=== PATIENT | female | born 1945 | race Caucasian/White ===

== ENCOUNTER → 2022-05-18 11:07 | Outpatient (CLI) | payer OTHER, SELFPAY ==
--- NOTE | ~2022-05-18 | US_ITS ---
EXAMINATION: US transvaginal DATE: 05/18/2022 11:39 INDICATION: History of atypical hyperplasia of the endometrium TECHNIQUE: Multiple endovaginal sonographic images of the pelvis were obtained. COMPARISON: None. FINDINGS: The uterus measures 5.6 x 2.1 x 3.9 cm. The endometrial complex measures 5 mm. The ovaries are not visualized however no adnexal abnormality is seen. There is no free fluid in the pelvis. IMPRESSION: 1. Unremarkable pelvic ultrasound. Reviewed, dictated and finalized at location A.
== END ==
PROVIDERS: Visit Provider Nurse Practitioner
DX: N85.01 Benign endometrial hyperplasia (principal); R93.5 Abnormal findings on diagnostic imaging of other abdominal regions, including retroperitoneum
CPT/HCPCS: 76830

== ENCOUNTER → 2022-05-18 11:12 | Outpatient (CLI) | payer OTHER, SELFPAY ==
--- NOTE | ~2022-05-18 | DEXA_ITS ---
Bone Density Report Name: KENDAL JO Age: 76 Sex: Female Ethnicity: White Date of : 1945 Indication: postmenopausal; screening for osteoporosis; height loss; Referring Provider: Oralia, Hetal Study: Bone densitometry was performed. Exam Date: May 18, 2022 Accession number: [id number] Bone Density: Region BMD T-score Z-score Classification AP Spine (L1-L4) 0.884 -1.5 0.9 Osteopenia Femoral Neck (Left) 0.695 -1.4 0.7 Osteopenia Total Hip (Left) 0.805 -1.1 0.7 Osteopenia Femoral Neck (Right) 0.617 -2.1 0.0 Osteopenia Total Hip (Right) 0.737 -1.7 0.1 Osteopenia Total Hip Mean 0.771 -1.4 0.4 Osteopenia World Health Organization criteria for BMD impression classify patients as: Normal (T-score at or above -1.0), Osteopenia (T-score between -1.0 and -2.5), or Osteoporosis (T-score at or below -2.5). 10-year Fracture Risk(1): Major Osteoporotic Fracture 12% Hip Fracture 3.2% Reported Risk Factors: [place] (), Neck BMD=0.617, BMI=20.9 (1) FRAX(R) Version 3.08. Fracture probability calculated for an untreated patient. Fracture probability may be lower if the patient has received treatment. Clinical Information Provided by Patient: Has used the following medications: Vitamin D, Calcium Patient maximum height was 64 Menopause Age: 54 Onset of menses at age 16 Number of children 0 Impression: The patient has low bone mass, based on the Right Femoral Neck T-score. The patient has an estimated ten-year risk of hip fracture of 3.2% and an estimated ten-year risk of major fracture of 12%, based on the WHO FRAX algorithm. Discussion: BONE DENSITY IS LOW AT ONE OR MORE SKELETAL SITES. THE PATIENT'S BMD AND CLINICAL RISK FACTORS CONTRIBUTE TO THIS PATIENT'S INCREASED RISK OF FRACTURE. This patient's lowest T-score is low at one or more skeletal sites. It meets the World Health Organization's (WHO) criteria for ?low bone mass? (T-score between -1.0 and -2.5). The patient's 10-year risk of hip fracture as calculated by FRAX exceeds the threshold where pharmacological therapy is recommended by the National Osteoporosis Foundation (NOF). However, all treatment decisions require clinical judgment and consideration of individual patient factors, including patient preferences, comorbidities, previous drug use, risk factors not captured in the FRAX model (e.g., frailty, falls, vitamin D deficiency, increased bone turnover, interval significant decline in bone density) and possible under or overestimation of fracture risk by FRAX. The patient should follow a healthful lifestyle (good nutrition with adequate calcium and vitamin D, and appropriate weight-bearing exercise). Follow-Up: Consider a repeat BMD and Vertebral Fracture Assessment (VFA) exam in 2 years or sooner if medically
== END ==
PROVIDERS: Visit Provider Nurse Practitioner
DX: M85.88 Other specified disorders of bone density and structure, other site (principal); M85.852 Other specified disorders of bone density and structure, left thigh; M85.851 Other specified disorders of bone density and structure, right thigh
CPT/HCPCS: 77080

== ENCOUNTER 2022-06-22 00:35 | Day surgery (SDC) | payer MEDICARE, SELFPAY ==
[2022-06-11 15:20] VITALS: BMI 20.9
--- NOTE | 2022-06-11 15:32 | PC.NURSE ---
Report to the Outpatient Waiting Room, entrance under the green pavilion located off [facility], at time __0930 on date __06/22/22 . Planned Procedure Time: __1130 . Time changes happen often and if your time is changed the preop area will call you the afternoon before. - You and your visitor will be asked to self-screen and do not enter if you have any COVID symptoms. - We encourage only one visitor and NO visitors under age 16 are allowed at this time. Your visitor will receive communication by the phone number that is given day of service. - The patient visitor is requested to social distance or may leave the building when not with patient due to restrictions. - A mask is required within the hospital. Patients may have clear liquids (water, carbonated beverages, clear teas, apple juice) until 3 hours prior to surgery (0830 AM) with a maximum of 20 ounces. - No food from midnight until time of surgery - Infants may have breast milk until 4 hours before surgery, infant formula 6 hours prior to surgery. - Children will be allowed to drink immediately following surgery. If applicable, please bring a bottle or sippy cup to assist with drinking. Juice, water, soda, and popsicles are readily available. For infants on formula, please bring formula the day of surgery. Pacifiers are allowed. Take the following medications with a SIP of water the morning of surgery: _LEVOTHYROXINE_ Medications to discontinue per physician N/A Date to take last dose Please no make-up, nail occitan, hairspray, perfume, deodorant, or body powder the day of surgery. No jewelry (including any body piercings) or valuables the day of surgery, leave them at home. Please take a shower or bath the night before, or the morning of, surgery with an antibacterial soap. Wear comfortable, loose fitting clothing. Children are encouraged to wear pajamas. - Jewelry must be removed prior to entering the operating room. Rings and piercings that are not removed may be cut off. - The hospital will not accept responsibility for valuables. - Please leave all valuables, including medications, at home the day of surgery. If you are going home after surgery, a licensed motor vehicle escort driver must drive you home. - NO public transportation without another adult. - We recommend that an adult stay with you for 24 hours following discharge. - We also recommend that you do not drive, make important decision, drink alcoholic beverages, or take any drugs that were not prescribed by your health care provider for at least 24 hours after your discharge time. For Pediatric surgeries, we recommend two adults accompany the child home. Follow any additional instructions given to you from your surgeon. If you or anyone in your household have experienced Covid symptoms in the past week, please notify your surgeon or the nurse liaison at the phone number below for possible testing. Telephone instructions given to ____PT and asked if any additional questions and then verbalized understanding. Patient advised to call surgeon office or pre surgery nurse liaison [phone] if any additional questions.
--- NOTE | 2022-06-22 07:33 | WPDHPUPDATE1 ---
History and Physical Update Update Date/Time: 06/22/22 07:33 History and Physical has been reviewed, including an updated exam of the patient. There are NO changes in the patient's condition. Risks, benefits, and alternatives have been discussed and questions answered. Patient agrees to proceed with procedure.
--- NOTE | 2022-06-22 07:33 | PM.HPGS ---
History of Present Illness History of Present Illness Consent: Risks, benefits, and alternatives have been discussed and questions answered. Patient agrees to proceed with procedure. Chief complaint: thickened endometrial lining Narrative: Shireen Ku is a 77 year old female with thickened endometrium at 5mm. Patient has a distant history in 2003 endometrial hyperplasia. Patient denies vaginal bleeding. Patient has a history of tamoxifen until 2015. Dr. Ho in 2019 refer the patient for AD and C secondary to thickened lining however the vfx artist she thought that time stated it was not thickened and no D&C was needed. Patient presented as a new patient May 05 for a 2nd opinion. Pelvic ultrasound was repeated with the stated findings and therefore the patient presents for Hysteroscopy and D&C. Risks of infection, bleeding, and perforation were reviewed. Possible pathology was also discussed. Patient voices understanding and agrees to proceed. Review of Systems Review of Systems: not repeated day of surgery; patient states no changes in status [facility] Past Medical History Medical History (Updated 06/22/22 @ 07:38 by Natali Lloyd MD) Ductal carcinoma in situ of breast 2009 Elevated cholesterol GERD (gastroesophageal reflux disease) Hypothyroid Surgical History Surgical History (Updated 06/22/22 @ 07:37 by Natali Lloyd MD) History of D&C patient states she has had 6 prior D & C's in her lifetime and in 2003 had atypical hyperplasia Social History Social History Smoking status: Never smoker Second hand tobacco smoke exposure: No Alcohol intake: current Alcohol use details: STATES MAYBE 4/YEAR Substance use: never Living arrangements: with family Spiritual care concerns: No Meds Home Medications and Allergies Home Medications Medication Instructions Recorded Confirmed Type atorvastatin 10 mg tablet 10 mg QAM 06/11/22 06/11/22 History famotidine 40 mg tablet 40 mg 06/11/22 06/11/22 History levothyroxine 50 mcg tablet 50 mcg QAM 06/11/22 06/11/22 History pantoprazole 40 mg tablet,delayed 40 mg PO DAILY 06/11/22 06/11/22 History release Allergies Allergy/AdvReac Type Severity Reaction Status Date / Time No Known Allergies Allergy Verified 06/11/22 15:17 Exam Const: General: healthy appearing and alert Orientation/consciousness: patient oriented x3 Resp: Effort & Inspection: normal respiratory effort GI: GI Palp: Yes Soft to palpation, No Tenderness to palpation present (GI) and No Palpable mass present : External Female Exam: normal external appearance Speculum Exam - Vagina: normal appearance of the vagina and normal vaginal discharge Speculum Exam - Cervix: normal appearance of the cervix Bimanual exam- vagina & uterus: uterine size normal and consistency normal Bimanual Exam- Adnexa, other: normal adnexae and No adnexal tenderness Neuro: General: patient oriented x3 Assessment and Plan Assessment and plan (1) Thickened endometrium: Code(s): R93.89 - Abnormal findings on diagnostic imaging of other specified body structures Status: Acute Assessment and Plan: plan is to proceed with D&C hysteroscopy
[2022-06-22] MEDS: LACTATED RINGERS 1,000 ML 30 ML IV CONT (07:45)
--- NOTE | 2022-06-22 07:49 | P.PNAN_ITS ---
Anes - Initial Pre Proc Eval Procedure: Operation Date: 06/22/22 09:30 Proposed Procedures p Hysteroscopy, Dilation and Curettage - Natali Lloyd MD Date/Time: 06/22/22 07:49 Surgeon: Natali Lloyd MD Pre Op Diagnosis: thickened endometrial lining Patient Data Age: 77 Gender: F Height: 1.6 m Weight: 53.63 kg Allergies Allergy/AdvReac Type Severity Reaction Status Date / Time No Known Allergies Allergy Verified 06/22/22 08:00 Home Medications Medication Instructions Recorded Confirmed Type atorvastatin 10 mg tablet 10 mg QAM 06/11/22 06/22/22 History famotidine 40 mg tablet 40 mg HS 06/11/22 06/22/22 History levothyroxine 50 mcg tablet 50 mcg QAM 06/11/22 06/22/22 History pantoprazole 40 mg tablet,delayed 40 mg PO DAILY 06/11/22 06/22/22 History release Patient hx anesthesia problems: none Family hx anesthesia problems: none Results Review: All pre-operative results and documents have been reviewed as part of the pre- operative evaluation. [facility] Past Medical History Medical History (Updated 06/22/22 @ 07:38 by Natali Lloyd MD) Ductal carcinoma in situ of breast 2009 Elevated cholesterol GERD (gastroesophageal reflux disease) Hypothyroid Surgical History Surgical History (Updated 06/22/22 @ 07:37 by Natali Lloyd MD) History of D&C patient states she has had 6 prior D & C's in her lifetime and in 2003 had atypical hyperplasia Social History Social History Smoking status: Never smoker Second hand tobacco smoke exposure: No Alcohol intake: current Alcohol use details: STATES MAYBE 4/YEAR Substance use: never Living arrangements: with family Spiritual care concerns: No Anes - Eval Final PreProcedure Day of Procedure 06/22/22 07:49 Patient weight: normal Heart: regular rate and rhythm Lungs: clear to auscultation and normal air movement Airway: Mallampati scale class II Neurological: alert and oriented Last oral intake: >/= 8 hours ASA classification: II Emergent: no Anesthetic plan: proceed Anesthesia type and monitoring: general GIVS and standard monitoring Results Review: All pre-operative results and documents have been reviewed as part of the pre- operative evaluation. Informed Consent: The patient's anesthetic plan and its attendant risks and benefits were discussed with the patient/family/POA. Questions were solicited and answers provided to the satisfaction of the patient/family/POA.
[2022-06-22] MEDS: ACETAMINOPHEN 500 MG TABLET 1000 MG PO (07:51)
[2022-06-22 08:00] VITALS: BP 114/74; PULSE 79; RESP 16; TEMP 36.8; O2SAT 96
[2022-06-22] MEDS: LIDOCAINE HCL 1% PF 30 ML VIAL 10 ML INFILTRATE (09:31)
--- NOTE | 2022-06-22 09:44 | P.OP_ITS ---
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 The uterus is bicornuate in shape. There is a polyp in the right horn. Endometrium appears severely atrophic. Description of Procedure The patient is taken to the operating room and placed under anesthesia in the dorsal lithotomy position. She was prepped and draped in the usual sterile fashion. [place] speculum was placed in the vagina and the cervix grasped on the anterior lip with a tenaculum. The cervix is injected in each quadrant with 1% lidocaine. The uterus was attempted to be sounded but there was cervical giovanny nosis noted. The os Finders are used and the cervix able to be opened. The uterus is then sounded to 6.5cm. The cervix is serially dilated to a 5 [place]. The hysteroscope is placed with the above-stated findings. The small resecting blade was placed through the scope and the polyp removed from the right horn. The hysteroscope was removed and small curette used to curette the endometrium with minimal if any material obtained consistent with the severe atrophy. All instruments are removed. Patient is awakened from anesthesia and taken to recovery in stable condition. Sponge, needle, and instrument counts are correct per the OR staff. Estimated Blood Loss 5 Drains No Packing No Pathology Yes ( Endometrial shavings and curettings) Complications No immediate complications Condition Stable Disposition PACU
[2022-06-22 09:48] VITALS: BP 117/60; PULSE 80; RESP 12; O2SAT 95
[2022-06-22 10:15] VITALS: BP 109/59; PULSE 71; RESP 14; O2SAT 98
[2022-06-22 10:33] VITALS: BP 126/70; PULSE 64; RESP 16
== END 2022-06-22 10:49 | disposition home or self-care (01) ==
PROVIDERS: Visit Provider Obstetrics & Gynecology Gynecology
PROC: 0U5B8ZZ Destruction of Endometrium, Via Natural or Artificial Opening Endoscopic (ICD-10-PCS; CPT 58563; principal; 2022-06-22 09:30)
DX: N84.0 Polyp of corpus uteri (principal); Q51.3 Bicornate uterus; E78.00 Pure hypercholesterolemia, unspecified; K21.9 Gastro-esophageal reflux disease without esophagitis; E03.9 Hypothyroidism, unspecified; Z85.3 Personal history of malignant neoplasm of breast
CPT/HCPCS: 58558; 88305; A9270; J2704; J3010; J7120